=== PATIENT | male | born 1975 | race African-American/Black ===

== ENCOUNTER 2016-12-15 11:32 | Emergency (ER) | payer SELFPAY ==
[~2016-12-15 11:32] MED LIST: AUGM875T PO; FLUT1SPR9 EACH NARE; IBUP800T23 PO; MAGICADU2 SWISH-SWAL
[2016-12-15 11:35] VITALS: BP 135/76; PULSE 74; RESP 16; TEMP 98.1; O2SAT 98
[2016-12-15] MEDS ORDERED: LORA-361 PO (12:01)
[2016-12-15] MEDS ORDERED: AUGM875T PO (12:01)
[2016-12-15] MEDS ORDERED: SALI0.653 EACH NARE (12:01)
[2016-12-15] MEDS ORDERED: FLUT1SPR5 EACH NARE (12:01)
--- NOTE | 2016-12-15 12:04 | PD ---
HPI Chief Complaint: Edema Time Seen by Provider: 12:01 Travel History International Travel<30 days: No Contact w/Intl Traveler<30days: No Traveled to known affect area: No History of Present Illness HPI 41-year-old male presents to the emergency department for evaluation of swelling sensation over his maxillary sinuses with headache, nasal congestion and runny nose. The patient states that he has had these symptoms intermittently for several months. States that they became worse last night. States that he was seen here a couple months ago with the same complaints and given some medications which did improve his symptoms. He denies any fever, chills, nausea, vomiting, lightheadedness, dizziness, numbness or tingling, weakness, cough. He has not tried anything [id number] for his symptoms. No other complaints. PFSH Past Medical History Blood Disorders: No Cancer: No Cardiovascular Problems: No Diminished Hearing: No Endocrine: No Gastrointestinal Disorders: Yes Genitourinary: No Immune Disorder: No Implanted Vascular Access Dvce: No Musculoskeletal: No Neurologic: No Reproductive: No Respiratory: No Schizophrenia: Yes Past Surgical History Abdominal Surgery: Yes (APPENDECTOMY) Appendectomy: Yes Cardiac Surgery: No Ear Surgery: No Endocrine Surgery: No Eye Surgery: No Genitourinary Surgery: No Gynecologic Surgery: No Neurologic Surgery: Yes Oral Surgery: No Thoracic Surgery: No Other Surgery: Yes Social History Alcohol Use: Yes Tobacco Use: Yes (1PPD) Substance Use: Yes (POT) Allergies-Medications (Allergen,Severity, Reaction): Coded Allergies: No Known Allergies (Verified , 12/15/16) Reported Meds & Prescriptions Reported Meds & Active Scripts Active Claritin (Loratadine) 10 Mg Tab 10 Mg PO DAILY 30 Days Saline Nasal [place] (Sodium Chloride) 0.65% [place] 2 [place] EACH NARE DIRECTED PRN Flonase Allergy Relief Nasal [place] (Fluticasone Nasal [place]) 50 Mcg/Act [place] 50 Mcg EACH NARE BID Augmentin (Amoxicillin-Clavulanate) 875-125 mg Tab 875 Mg PO BID 10 Days not for use in CrCl <30 ml/min. Flonase Allergy Relief Children Nasal [place] (Fluticasone Nasal [place]) 50 Mcg/ Act [place] 2 [place] EACH NARE DAILY 50 mcg/spray Augmentin (Amoxicillin-Clavulanate) 875-125 mg Tab 875 Mg PO BID not for use in CrCl <30 ml/min. Ibuprofen 800 Mg Tab 800 Mg PO Q8H PRN Magic Mouthwash Adult Liq (Multi-Ingredient Mouthwash/Gargle) 120 Ml Susp 5 Ml SWISH-SWAL ACHS Each 5 mL contains: Nystatin 200,000 units, Diphenhydramine 4.25 mg, Viscous Lidocaine 10 mg, Pacheco syrup 0.8 mL Review of Systems Except as stated in HPI: all other systems reviewed are Neg Physical Exam Narrative GENERAL: Well-nourished and well-developed pleasant patient in no acute distress who is nontoxic appearing. SKIN: Warm and dry. HEAD: Normocephalic and atraumatic. EYES: No injection, drainage, or hyphema noted. PERRLA. EOMI. ENT: There is erythema and edema of the nasal mucosa with clear nasal drainage. Tenderness to palpation over maxillary sinuses. Oropharynx is clear and the TMs are normal with good landmarks. NECK: Supple and the trachea is midline. No lymphadenopathy is noted throughout the cervical chains. CARDIOVASCULAR: Regular rate and rhythm. RESPIRATORY: Breath sounds are equal bilaterally with no accessory muscle use, wheezing, rhonchi, or crackles. GASTROINTESTINAL: Abdomen is soft, non-tender, and nondistended. MUSCULOSKELETAL: No obvious deformities, swelling, cyanosis, or ecchymosis is present throughout the upper and lower extremities. Patient has full range of motion without any signs of neurovascular compromise. NEUROLOGICAL: Awake, alert, and oriented. Normal speech and gait. Cranial nerves are grossly intact. Data Data Last Documented VS Vital Signs Date Time Temp Pulse Resp B/P Pulse Ox O2 Delivery O2 Flow Rate FiO2 12/15/16 11:46 18 Room Air 12/15/16 11:35 98.1 74 135/76 98 [facility] Medical Decision Making Medical Screen Exam Complete: Yes Emergency Medical Condition: Yes Differential Diagnosis Sinusitis versus recurrent versus chronic versus acute versus URI versus rhinosinusitis Narrative Course 41-year-old male presents to the emergency department for evaluation of nasal congestion and pain over the maxillary sinuses. Patient is afebrile, vital signs are stable. He has had this intermittently for several months. He has rhinosinusitis likely chronic or recurrent. We'll give him Flonase, Claritin, Augmentin and nasal saline. He is instructed to follow-up with a PCP. Patient verbalizes understanding and agreement with treatment plan. Diagnosis Primary Impression: Recurrent rhinosinusitis Referrals: Primary Care Physician Patient Instructions: General Instructions, Sinusitis (ED) Additional Instructions: Use saline nasal spray before using Flonase. Take medications as prescribed with food and a full glass of water. Follow-up with your Primary Care Physician. Return to the ED for any acute worsening of symptoms. Med/Other Pt SpecificInfo: Prescription(s) given Scripts Loratadine (Claritin)10 Mg Tab10 Mg PO DAILY 30 Days Ref 0 Prov:Dejon Domingo MD 12/15/16 Saline Nasal [place] 0.65% Spray2 [place] EACH NARE DIRECTED PRN (NASAL CONGESTION) #1 BOTTLE Ref 0 Prov:Dejon Domingo MD 12/15/16 Fluticasone Nasal [place] (Flonase Allergy Relief Nasal [place])50 Mcg/Act Spray50 Mcg EACH NARE BID #1 BOTTLE Ref 0 Prov:Dejon Domingo MD 12/15/16 Amoxicillin-Clavulanate (Augmentin)875-125 mg [id number] Mg PO BID 10 Days Ref 0 not for use in CrCl <30 ml/min. Prov:Dejon Domingo MD 12/15/16 Disposition: 01 DISCHARGE HOME Condition: Stable Che Lara Dec 15, 2016 12:04
== END 2016-12-15 12:56 | disposition home or self-care (01) ==
LOC: NEPE 11:32
DX: J32.8 Other chronic sinusitis (principal); R51 Headache; R09.89 Other specified symptoms and signs involving the circulatory and respiratory systems; F17.200 Nicotine dependence, unspecified, uncomplicated; Z87.19 Personal history of other diseases of the digestive system; Z86.59 Personal history of other mental and behavioral disorders
CPT/HCPCS: 99283

== ENCOUNTER 2016-12-16 22:26 | Emergency (ER) | payer SELFPAY ==
[~2016-12-16] VITALS: Ht 170.2 cm; Wt 85.0 kg
[~2016-12-16 22:26] MED LIST changes: +FLUT1SPR5 EACH NARE; +LORA-361 PO; +SALI0.653 EACH NARE
[2016-12-16 22:27] VITALS: BP 149/82; PULSE 75; RESP 16; TEMP 98.1; O2SAT 100
--- NOTE | 2016-12-16 23:17 | PD ---
HPI Chief Complaint: Medical Clearance Time Seen by Provider: 23:15 Travel History International Travel<30 days: No Contact w/Intl Traveler<30days: No Traveled to known affect area: No History of Present Illness HPI 41-year-old black male with presents to emergency department requesting a release to return to work. He was seen in the emergency department yesterday for sinusitis. He is requesting a note for work. He states that he started to feel better. He still has some sinus congestion pain. He is taking his medications as directed. PFSH Past Medical History Blood Disorders: No Cancer: No Cardiovascular Problems: No Diminished Hearing: No Endocrine: No Gastrointestinal Disorders: Yes Genitourinary: No Immune Disorder: No Implanted Vascular Access Dvce: No Musculoskeletal: No Neurologic: No Reproductive: No Respiratory: No Schizophrenia: Yes Past Surgical History Abdominal Surgery: Yes (APPENDECTOMY) Appendectomy: Yes Cardiac Surgery: No Ear Surgery: No Endocrine Surgery: No Eye Surgery: No Genitourinary Surgery: No Gynecologic Surgery: No Neurologic Surgery: Yes Oral Surgery: No Thoracic Surgery: No Other Surgery: Yes Social History Alcohol Use: Yes Tobacco Use: Yes (1PPD) Substance Use: Yes (POT) Allergies-Medications (Allergen,Severity, Reaction): Coded Allergies: No Known Allergies (Verified , 12/16/16) Reported Meds & Prescriptions Reported Meds & Active Scripts Active Claritin (Loratadine) 10 Mg Tab 10 Mg PO DAILY 30 Days Saline Nasal [place] (Sodium Chloride) 0.65% [place] 2 [place] EACH NARE DIRECTED PRN Flonase Allergy Relief Nasal [place] (Fluticasone Nasal [place]) 50 Mcg/Act [place] 50 Mcg EACH NARE BID Augmentin (Amoxicillin-Clavulanate) 875-125 mg Tab 875 Mg PO BID 10 Days not for use in CrCl <30 ml/min. Flonase Allergy Relief Children Nasal [place] (Fluticasone Nasal [place]) 50 Mcg/ Act [place] 2 [place] EACH NARE DAILY 50 mcg/spray Augmentin (Amoxicillin-Clavulanate) 875-125 mg Tab 875 Mg PO BID not for use in CrCl <30 ml/min. Ibuprofen 800 Mg Tab 800 Mg PO Q8H PRN Magic Mouthwash Adult Liq (Multi-Ingredient Mouthwash/Gargle) 120 Ml Susp 5 Ml SWISH-SWAL ACHS Each 5 mL contains: Nystatin 200,000 units, Diphenhydramine 4.25 mg, Viscous Lidocaine 10 mg, Pacheco syrup 0.8 mL Review of Systems Except as stated in HPI: all other systems reviewed are Neg Physical Exam Narrative GENERAL: Well-developed, well-nourished in no acute distress. Nontoxic appearing. HEAD: Normocephalic, atraumatic. EYES: Pupils equal round and reactive. Extraocular motions intact. No scleral icterus. No injection or drainage. ENT: TMs clear without erythema. The external auditory canals clear. Nose: clear . Posterior pharynx is pink and moist. No tonsillar edema or exudate. Uvula midline. Airway patent. NECK: Trachea midline.Supple, nontender, moves head freely. No central bony tenderness or spasm. CARDIOVASCULAR: Regular rate and rhythm without murmurs, gallops, or rubs. RESPIRATORY: Clear to auscultation. Breath sounds equal bilaterally. No wheezes , rales, or rhonchi. GASTROINTESTINAL: Abdomen soft, non-tender, nondistended. No hepato-splenomegaly , or palpable masses. No guarding. EXTREMITIES: No clubbing, cyanosis, or edema. No joint tenderness, effusion, or edema noted. BACK: Nontender without deformity or crepitance. No flank tenderness. Data Data Last Documented VS Vital Signs Date Time Temp Pulse Resp B/P Pulse Ox O2 Delivery O2 Flow Rate FiO2 12/16/16 22:27 98.1 75 16 149/82 100 Room Air MDM Medical Decision Making Medical Screen Exam Complete: Yes Emergency Medical Condition: Yes Medical Record Reviewed: Yes Differential Diagnosis Sinusitis, bronchitis, medical release Narrative Course This is medical release, medical clearance exam Diagnosis Primary Impression: medical release Additional Impression: medical clearance exam Patient Instructions: General Instructions Departure Forms: Tests/Procedures, Work Release Enter return to work date: Dec 17, 2016 Additional Instructions: Rest. Increase fluids. Continue your medications to complete. Follow-up with a medical doctor in one week. Return to the ER for any problems. Med/Other Pt SpecificInfo: No Change to Meds Disposition: 01 DISCHARGE HOME Condition: Stable Mars Gordillo Dec 16, 2016 23:17
== END 2016-12-16 23:15 | disposition home or self-care (01) ==
LOC: NEPB 22:26
DX: J32.9 Chronic sinusitis, unspecified (principal); Z02.89 Encounter for other administrative examinations
CPT/HCPCS: 99282

== ENCOUNTER 2017-03-04 14:43 | Emergency (ER) | payer SELFPAY ==
[~2017-03-04] VITALS: Ht 170.2 cm; Wt 76.0 kg
[2017-03-04 14:47] VITALS: BP 123/69; PULSE 84; RESP 24; TEMP 98.6; O2SAT 97
--- NOTE | 2017-03-04 15:05 | PD ---
Physical Exam Time Seen by Provider: 15:03 Narrative 41 year old presents to ED for evaluation of L elbow injury. Pt had a trip and fall and struck his elbow while trying to stop his fall. Pain is a 10/10; exacerbated with movement. Pt did not strike his head in the fall. Denies any significant medical history. Data Data Last Documented VS Vital Signs Date Time Temp Pulse Resp B/P Pulse Ox O2 Delivery O2 Flow Rate FiO2 03/04/17 14:47 98.6 84 24 123/69 97 MDM Medical Record Reviewed: Yes Supervised Visit with ZECHARIAH: No Narrative Course 41 year old male presents to ED for evaluation of L elbow pain. Appears without distress. VSS Condition: Stable Trini Sue Mar 04, 2017 15:05
[2017-03-04] MEDS ORDERED: IBUPROFEN 800 MG TAB PO ONE (15:15)
[2017-03-04] MEDS ORDERED: IBUP800T23 PO (15:19)
--- NOTE | 2017-03-04 15:19 | PD ---
HPI Chief Complaint: Musculoskeletal Complaint Time Seen by Provider: 15:13 Travel History International Travel<30 days: No Contact w/Intl Traveler<30days: No Traveled to known affect area: No History of Present Illness HPI 41-year-old male presents to the emergency Department with complaint of left elbow pain after tripping over a step and falling. He hit his elbow while trying to stop himself from falling. Denies hitting his head or loss of consciousness. Denies neck pain or back pain. Reports numbness and tingling in his left hand fingers. Denies loss of sensation to the affected extremity. Reports decreased range of motion and strength to the affected extremity. Has not taken any medications or tried any treatments to alleviate symptoms. Pain is worse with movement of the arm. Denies allergies. Denies significant past medical history. No other modifying factors or associated signs and symptoms. PFSH Past Medical History Blood Disorders: No Cancer: No Cardiovascular Problems: No Diminished Hearing: No Endocrine: No Gastrointestinal Disorders: Yes Genitourinary: No Immune Disorder: No Implanted Vascular Access Dvce: No Musculoskeletal: No Neurologic: No Reproductive: No Respiratory: No Schizophrenia: Yes Past Surgical History Abdominal Surgery: Yes (APPENDECTOMY) Appendectomy: Yes Cardiac Surgery: No Ear Surgery: No Endocrine Surgery: No Eye Surgery: No Genitourinary Surgery: No Gynecologic Surgery: No Neurologic Surgery: Yes Oral Surgery: No Thoracic Surgery: No Other Surgery: Yes Social History Alcohol Use: Yes Tobacco Use: Yes (1PPD) Substance Use: Yes (POT) Allergies-Medications (Allergen,Severity, Reaction): Coded Allergies: No Known Allergies (Verified , 12/16/16) Reported Meds & Prescriptions Reported Meds & Active Scripts Active Ibuprofen 800 Mg Tab 800 Mg PO Q6HR PRN Claritin (Loratadine) 10 Mg Tab 10 Mg PO DAILY 30 Days Saline Nasal [place] (Sodium Chloride) 0.65% [place] 2 [place] EACH NARE DIRECTED PRN Flonase Nasal [place] (Fluticasone Nasal [place]) 50 Mcg/Act [place] 50 Mcg EACH NARE BID Augmentin (Amoxicillin-Clavulanate) 875-125 mg Tab 875 Mg PO BID 10 Days not for use in CrCl <30 ml/min. Flonase Allergy Relief Children Nasal [place] (Fluticasone Nasal [place]) 50 Mcg/ Act [place] 2 [place] EACH NARE DAILY 50 mcg/spray Augmentin (Amoxicillin-Clavulanate) 875-125 mg Tab 875 Mg PO BID not for use in CrCl <30 ml/min. Ibuprofen 800 Mg Tab 800 Mg PO Q8H PRN Magic Mouthwash Adult Liq (Multi-Ingredient Mouthwash/Gargle) 120 Ml Susp 5 Ml SWISH-SWAL ACHS Each 5 mL contains: Nystatin 200,000 units, Diphenhydramine 4.25 mg, Viscous Lidocaine 10 mg, Pacheco syrup 0.8 mL Review of Systems Except as stated in HPI: all other systems reviewed are Neg Physical Exam Narrative GENERAL: Well-nourished, well-developed male patient, in no acute distress SKIN: Warm and dry. HEAD: Atraumatic. Normocephalic. EYES: Pupils equal and round. No scleral icterus. No injection or drainage. ENT: Mucosa pink and moist. Airway patent. NECK: Trachea midline. CARDIOVASCULAR: Regular rate. RESPIRATORY: No accessory muscle use. GASTROINTESTINAL: Flat. 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 Left upper extremity supple and non-tense with 2+ radial pulse. No obvious deformities. No clubbing. No cyanosis. No edema. NEUROLOGICAL: Awake and alert. Oriented 3. No obvious cranial nerve deficits. Motor grossly within normal limits. Normal speech. PSYCHIATRIC: Appropriate mood and affect; insight and judgment normal. Data Data Last Documented VS Vital Signs Date Time Temp Pulse Resp B/P Pulse Ox O2 Delivery O2 Flow Rate FiO2 03/04/17 14:47 98.6 84 24 123/69 97 Orders Elbow, Complete (4 Vws) (03/04/17 15:11) Ice/Cold Pack (03/04/17 15:11) Ibuprofen (Motrin) (03/04/17 15:15) Sling Cradle Arm (03/04/17 ) MDM Medical Decision Making Medical Screen Exam Complete: Yes Emergency Medical Condition: Yes Medical Record Reviewed: Yes Differential Diagnosis Elbow fracture, elbow contusion, elbow dislocation Narrative Course 41-year-old male with left elbow injury after a mechanical trip and fall and striking his elbow trying to catch himself. He denies hitting his head or loss of consciousness. Denies neck pain or back pain. Ibuprofen and ice pack ordered. Left elbow x-ray ordered. 1620: Left elbow x-ray concludes Last 24 hours Impressions Elbow X-Ray 03/04/17 1511 Signed Impressions: Service Date/Time: Saturday, March 04, 2017 15:29 - CONCLUSION: Joint effusion with suspected nondisplaced fracture of the radial head. Rafael Morgan MD Arm sling provided for support. Mandatory outpatient referral ordered, as patient does not have insurance. Discussed radial head fracture and early movement of the arm. Ibuprofen prescribed for home. Patient verbalizes understanding and agreement with treatment plan. Patient is medically cleared and stable for discharge. Discussed reasons to return to the emergency department. Instructed patient to follow up with primary care provider. Patient agrees with treatment plan. The patients vital signs are stable and the patient is stable for outpatient follow-up and treatment. Patient discharged home, stable and in no acute distress. Diagnosis Primary Impression: Injury of elbow, left Qualified Code: S59.902A - Injury of elbow, left, initial encounter Referrals: Primary Care Physician Patient Instructions: Elbow Fracture in Adults (ED), General Instructions Departure Forms: Tests/Procedures, Work Release Enter return to work date: Mar 10, 2017 Additional Instructions: Ibuprofen or Tylenol as directed and as needed for pain and inflammation Rest and immobilize the affected area Apply ice to reduce swelling to affected area Avoid elbow pressure by not leaning or placing your weight on your elbow to rise from a lying or sitting position Arm sling for support Follow-up with primary care provider Follow-up with orthopedic as needed Return to the emergency department immediately with worsening of symptoms Med/Other Pt SpecificInfo: Prescription(s) given Scripts Ibuprofen 800 Mg [id number] Mg PO Q6HR PRN (PAIN) #30 TAB Ref 0 Prov:Che Lao 03/04/17 Disposition: 01 DISCHARGE HOME Condition: Stable Che Lao Mar 04, 2017 15:19
--- NOTE | 2017-03-04 16:09 | RADRPT ---
EXAM DATE/TIME: 03/04/2017 15:29 [facility] COMPARISON: No previous studies available for comparison. INDICATIONS : Fall and landed on elbow. MEDICAL HISTORY : None. SURGICAL HISTORY : None. ENCOUNTER: Initial ACUITY: 1 day PAIN SCORE: 10/10 LOCATION: Left elbow FINDINGS: Multiple view examination of the left elbow demonstrates distended anterior and posterior fat pads. T here is slight cortical disruption seen involving the radial head. CONCLUSION: Joint effusion with suspected nondisplaced fracture of the radial head. Rafael Morgan MD on March 04, 2017 at 16:06 Board Certified Radiologist. This report was verified electronically.
== END 2017-03-04 16:32 | disposition home or self-care (01) ==
LOC: NEPK 14:43
DX: S59.902A Unspecified injury of left elbow, initial encounter (principal); M25.422 Effusion, left elbow; R20.0 Anesthesia of skin; R20.2 Paresthesia of skin; F17.200 Nicotine dependence, unspecified, uncomplicated; Z87.19 Personal history of other diseases of the digestive system; Z86.59 Personal history of other mental and behavioral disorders; W01.0XXA Fall on same level from slipping, tripping and stumbling without subsequent striking against object, initial encounter
CPT/HCPCS: 73080; 99283

== ENCOUNTER 2017-04-05 12:10 | Emergency (ER) | payer SELFPAY ==
[~2017-04-05] VITALS: Ht 170.2 cm; Wt 76.0 kg
[2017-04-05 12:12] VITALS: BP 134/72; PULSE 98; RESP 20; TEMP 98.6; O2SAT 97
[2017-04-05] MEDS ORDERED: TETANUS/DIPHTHERIA TOXOID ADULT 0.5 ML VIAL IM ONE (12:30)
[2017-04-05] MEDS ORDERED: ACETAMINOPHEN/HYDROcodone 325 MG/5 MG TAB PO ONE (12:30)
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
[2017-04-05 14:11] VITALS: BP 132/86; PULSE 92; RESP 16; O2SAT 97
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
[2017-04-05] MEDS ORDERED: DICL75TA PO (14:23)
[2017-04-05] MEDS ORDERED: AMOX875T PO (14:23)
== END 2017-04-05 14:47 | disposition home or self-care (01) ==
LOC: NEPD 12:10
DX: S01.81XA Laceration without foreign body of other part of head, initial encounter (principal); Y04.2XXA Assault by strike against or bumped into by another person, initial encounter; Z23 Encounter for immunization
CPT/HCPCS: 12011; 70450; 70486; 90471; 90714